=== PATIENT | female | born 1970 | race Caucasian/White ===

== ENCOUNTER → 2016-03-31 | Outpatient (CLI) | payer BC ==
[~2016-03-31] MED LIST: ASPI325T6 PO; CLARITIN 1010 MG/TAB PO; FOLIC ACID 11 MG/TA1 PO; HCTZ12.5TAB PO; IRON325 MG PO; METHOTREXA2.5 MG/TAB PO; MULTI VITAMINS1 TAB PO; NAPROSYN500 MG PO; NORCO 325 MG-7.1 TAB PO; PRILOSEC 20MG20 MG PO; ROXICODONE 55 MG/TAB PO; SENOKOT S 50 MG1 TAB PO; SENOKOT8.6 MG PO; TRI-LINYAH 35 M1 TAB PO; TYLENOL 325MG325 MG PO; VITAMIN C500 MG PO; ZESTRIL40 MG PO; ZOLOFT 50MG50 MG PO
[2016-03-31 22:26] LABS: IMMUNOGLOBULIN A 165 mg/dL (65-421); IMMUNOGLOBULIN G 1011 mg/dL (552-1631); IMMUNOGLOBULIN M, QUANTITATIVE 73 mg/dL (33-293)
[2016-04-01 22:53] LABS: C-ANCA 10 U/mL (0-99); P-ANCA 45 U/mL (0-99)
[2016-04-02 11:15] LABS: ANGIOTENSIN CONVERTING ENZYME <5 U/L (8 - 53)
== END ==
LOC: COL.RAD 10:52
PROVIDERS: Internal Medicine Infectious Disease
DX: R91.8 Other nonspecific abnormal finding of lung field (principal); J34.1 Cyst and mucocele of nose and nasal sinus

== ENCOUNTER → 2016-03-31 | Outpatient (CLI) | payer BC ==
[2016-04-05 10:27] LABS: .HISTOPLASMA ANTIGEN COMMENT Negative (()); .HISTOPLASMA ANTIGEN SERUM None Detected (())
[2016-04-06 12:35] LABS: HISTOPLASMA ID Negative (Negative); HISTOPLASMA MYCELIAL Negative (Negative)
== END ==
LOC: COL.LAB 16:42
PROVIDERS: Internal Medicine
DX: Z53.9 Procedure and treatment not carried out, unspecified reason (principal)

== ENCOUNTER 2016-04-21 10:11 | Inpatient (IN) | payer BC ==
[~2016-04-21] VITALS: Ht 165.1 cm; Wt 96.2 kg
[~2016-04-21 10:11] MED LIST changes: -HCTZ12.5TAB PO; -PRILOSEC 20MG20 MG PO
[2016-07-14] VITALS (15 sets, daily range): BP systolic 103–129; BP diastolic 53–80; PULSE 50–74; TEMP 97.4–98.7
[2016-07-14] MEDS ORDERED: HCTZ12.5TAB PO (05:35)
[2016-07-14] MEDS ORDERED: CLARITIN 1010 MG/TAB PO (05:36)
[2016-07-15] VITALS (7 sets, daily range): BP systolic 102–136; BP diastolic 51–66; PULSE 53–73; TEMP 97.5–98.7
[2016-07-15 06:23] LABS: HEMATOCRIT 32.5 % (37.0-47.0)
[2016-07-16 04:12] VITALS: BP 141/68; PULSE 66; TEMP 98.2
[2016-07-16 07:12] VITALS: BP 143/76; PULSE 75; TEMP 98.4
[2016-07-16 07:19] LABS: HEMATOCRIT 32.9 % (37.0-47.0); HEMOGLOBIN 10.9 g/dl (12.5-16.0)
[2016-07-16] MEDS ORDERED: NORCO 325 MG-7.1 TAB PO (07:26)
[2016-07-16] MEDS ORDERED: ASPI325T6 PO (07:26)
[2016-07-16] MEDS ORDERED: ROXICODONE 55 MG/TAB PO (07:28)
[2016-07-16] MEDS ORDERED: SENOKOT S 50 MG1 TAB PO (07:28)
[2016-07-16] MEDS ORDERED: PRILOSEC 20MG20 MG PO (07:30)
== END 2016-07-16 14:30 | disposition home or self-care (01) | DRG 470 ==
LOC: JCC 07-14 05:15
PROVIDERS: Orthopaedic Surgery
PROC: 0SRC0J9 Replacement of Right Knee Joint with Synthetic Substitute, Cemented, Open Approach (ICD-10-PCS; principal; 2016-07-14 07:30)
DX: M17.11 Unilateral primary osteoarthritis, right knee (principal); I10 Essential (primary) hypertension; J45.909 Unspecified asthma, uncomplicated; R07.0 Pain in throat; T40.4X5A Adverse effect of other synthetic narcotics, initial encounter
CPT/HCPCS: A4315; A9284; C1713; C1776; J0595; J0690; J1100; J1200; J1720; J2250; J2310; J2405; J2704; J3010; J7120

== ENCOUNTER → 2016-07-08 | Outpatient (CLI) | payer BC ==
[~2016-07-08] MED LIST changes: +HCTZ12.5TAB PO; +PRILOSEC 20MG20 MG PO
== END ==
LOC: COL.LAB 15:28
DX: Z96.651 Presence of right artificial knee joint (principal)

== ENCOUNTER 2017-07-25 09:34 | Emergency (ER) | payer BC ==
[~2017-07-25] VITALS: Ht 165.1 cm; Wt 99.1 kg
[2017-07-25 09:39] VITALS: BP 124/57; TEMP 98.7
[2017-07-25] MEDS ORDERED: ROXICODONE 55 MG/TAB PO (10:01)
[2017-07-25] MEDS ORDERED: MULTIPLE VITAMI1 CAP PO (10:02)
[2017-07-25] MEDS ORDERED: NAPROSYN500 MG PO (10:05)
[2017-07-25] MEDS ORDERED: TYLENOL 8 HR PO (10:06)
[2017-07-25 10:34] LABS: BASO % 0.5 % (0.0-2.0); EOS # 0.2 (0.0-0.7); EOS % 2.9 % (0-4.0); GRAN # 4.2 (1.4-6.5); GRAN % 63.6 % (42.2-75.2); LYMPH # 1.7 (1.2-3.4); LYMPH % 25.6 % (20.0-51.0); MEAN CELL VOLUME 86 fl (80.0-100.0); MEAN CORPUSCULAR HEMOGLOBIN 29 pg (27.0-31.0); MEAN CORPUSCULAR HGB CONC 33 g/dl (33.0-37.0); MEAN PLATELET VOLUME 10.8 fl (7.4-10.4); MONO # 0.5 (0.1-0.6); MONO % 7.1 % (1.7-9.3); PLATELET COUNT 347 K/mm3 (130-400); REDCELL DISTRIBUTION WIDTH-CV 13.5 % (11.5-14.5)
[2017-07-25 10:47] LABS: ALBUMIN 3.6 gm/dL (3.5-5.0); BILIRUBIN,TOTAL 0.5 mg/dL (0.0-1.0); CALCIUM 9.1 mg/dL (8.4-10.2); CREATININE, serum 0.56 mg/dL (0.52-1.25); POTASSIUM 4.1 mmol/L (3.4-5.0); TOTAL PROTEIN 7.7 gm/dL (6.4-8.2)
[2017-07-25 11:55] VITALS: PULSE 70
== END 2017-07-25 11:55 | disposition home or self-care (01) ==
LOC: COL.ER 09:34
PROVIDERS: Nurse Practitioner Primary Care
DX: R10.9 Unspecified abdominal pain (principal); I10 Essential (primary) hypertension; Z98.890 Other specified postprocedural states
CPT/HCPCS: Q9967

== ENCOUNTER 2017-08-05 11:00 | Outpatient (RCR) | payer BC ==
[2017-07-17 10:13] VITALS: BP 141/86; PULSE 84; TEMP 97.7
[2017-07-18 09:07] VITALS: BP 135/85; PULSE 85; TEMP 97.5
[2017-07-19 08:39] VITALS: BP 112/76; PULSE 73; TEMP 97.6
[2017-07-21 07:39] VITALS: BP 134/63; PULSE 82; TEMP 98.8
[2017-07-21 07:41] LABS: HEMATOCRIT 37.4 % (37.0-47.0); HEMOGLOBIN 12.5 g/dl (12.5-16.0); MEAN CELL VOLUME 87 fl (80.0-100.0); MEAN CORPUSCULAR HEMOGLOBIN 29 pg (27.0-31.0); MEAN CORPUSCULAR HGB CONC 33 g/dl (33.0-37.0); MEAN PLATELET VOLUME 10.4 fl (7.4-10.4); PLATELET COUNT 425 K/mm3 (130-400); RED BLOOD COUNT 4.32 M/mm3 (4.10-5.30); REDCELL DISTRIBUTION WIDTH-CV 13.6 % (11.5-14.5)
[2017-07-21 07:55] LABS: ALBUMIN 3.8 gm/dL (3.5-5.0); BILIRUBIN,TOTAL 0.5 mg/dL (0.0-1.0); C-REACTIVE PROTEIN 0.9 mg/dL (0.0-0.9); CALCIUM 9.5 mg/dL (8.4-10.2); CREATININE, serum 0.61 mg/dL (0.52-1.25); POTASSIUM 3.9 mmol/L (3.4-5.0); TOTAL PROTEIN 8.3 gm/dL (6.4-8.2)
[2017-07-23 09:28] VITALS: BP 108/69; PULSE 76; TEMP 97.2
[2017-07-24 10:09] VITALS: BP 97/75; PULSE 75; TEMP 97.3
[2017-07-31 10:13] VITALS: BP 115/83; PULSE 70; TEMP 98.3
[~2017-08-05] VITALS: Ht 165.1 cm; Wt 104.4 kg
[~2017-08-05 11:00] MED LIST changes: +MULTIPLE VITAMI1 CAP PO; +TYLENOL 8 HR PO
[2017-08-05 11:18] VITALS: BP 120/72; PULSE 79; TEMP 97.2
== END 2017-08-05 13:00 | disposition home or self-care (01) ==
LOC: EUO 11:00
PROVIDERS: Internal Medicine
DX: K35.3 Acute appendicitis with localized peritonitis (principal); Z45.2 Encounter for adjustment and management of vascular access device; Z95.828 Presence of other vascular implants and grafts
CPT/HCPCS: J1335; J7050

== ENCOUNTER → 2018-11-18 | Outpatient (CLI) | payer BC | LOC: MC.RAD 09:10 | DX: Z12.31 Encounter for screening mammogram for malignant neoplasm of breast (principal) ==

== ENCOUNTER 2021-10-03 20:01 | Emergency (ER) | payer BC ==
[~2021-10-03] VITALS: Ht 165.1 cm; Wt 110.0 kg
[2021-10-03 20:07] VITALS: TEMP 98
[2021-10-03 20:31] LABS: BASO % 0.5 % (0.0-2.0); EOS # 0.2 K/mm3 (0.0-0.7); EOS % 2.9 % (0.0-4.0); GRAN # 4.1 K/mm3 (1.4-6.5); GRAN % 49.4 % (42.2-75.2); HEMATOCRIT 38.1 % (37.0-47.0); HEMOGLOBIN 13.2 g/dl (12.5-16.0); LYMPH # 3.2 K/mm3 (1.2-3.4); LYMPH % 39.2 % (20.0-51.0); MEAN CELL VOLUME 89 fl (80.0-100.0); MEAN CORPUSCULAR HEMOGLOBIN 31 pg (27-31); MEAN CORPUSCULAR HGB CONC 35 g/dl (33.0-37.0); MEAN PLATELET VOLUME 10.9 fl (7.4-10.4); MONO # 0.6 K/mm3 (0.1-0.6); MONO % 7.8 % (1.7-9.3); PLATELET COUNT 293 K/mm3 (130-400); REDCELL DISTRIBUTION WIDTH-CV 13.3 % (11.5-14.5)
[2021-10-03 20:46] LABS: ALANINE AMINOTRANSFERASE 29 U/L (0-55); ALBUMIN 3.7 gm/dL (3.5-5.0); ALKALINE PHOSPHATASE 77 U/L (40-150); ANION GAP 14 mmol/L (7-16); AST,SGOT 22 U/L (5-34); BILIRUBIN,TOTAL 0.3 mg/dL (0.2-1.2); BLOOD UREA NITROGEN 12 mg/dL (10-20); C-REACTIVE PROTEIN 1.86 mg/dL (0.00-0.50); CALCIUM 9.7 mg/dL (8.4-10.2); CARBON DIOXIDE 24 mmol/L (22-29); CHLORIDE 103 mmol/L (98-107); CREATININE, serum 0.68 mg/dL (0.57-1.11); GLUCOSE 152 mg/dL (70-99); POTASSIUM 3.9 mmol/L (3.5-4.5); SODIUM 141 mmol/L (136-145); TOTAL PROTEIN 7.8 gm/dL (6.2-8.1)
[2021-10-03 20:54] LABS: TROPONIN-I < 0.010 ng/mL (0.00-0.033)
[2021-10-03 22:41] VITALS: BP 150/96; PULSE 83
== END 2021-10-03 22:42 | disposition home or self-care (01) ==
LOC: COL.ER 20:01
PROVIDERS: Nurse Practitioner
DX: U07.1 COVID-19 (principal); Z73.0 Burn-out; Z28.310 Unvaccinated for COVID-19
CPT/HCPCS: Q9967

== ENCOUNTER → 2021-10-17 | Outpatient (CLI) | payer BC | LOC: MC.RAD 07:41 | DX: R59.0 Localized enlarged lymph nodes (principal) ==

== ENCOUNTER → 2021-11-05 | Outpatient (CLI) | payer BC | LOC: MC.RAD 09:46 | DX: N63.32 Unspecified lump in axillary tail of the left breast (principal) | CPT/HCPCS: A4648 ==